=== PATIENT | male | born 1985 | race Caucasian/White ===

== ENCOUNTER 2019-04-06 17:20 | Inpatient (IN) ==
--- NOTE | 2019-04-06 17:36 | ERNOTE ---
Abdominal HPI - Narrative Date of Service: 04/06/19 - General Chief Complaint: Abdominal Pain Time Seen by Provider: 04/06/19 17:21 Source: patient Exam Limitations: no limitations - Immun/Allergies/Home Medications Immunizatons: IMMUNIZATION HX Immunizations Up to Date Yes History of Influenza Vaccine No Hx Pneumococcal Vaccination No Allergies/Adverse Reactions: Allergies codeine Adverse Reaction (Intermediate, Verified 04/06/19 17:27) Other Home Medications: HOME MEDICATIONS ibuprofen 400 mg tablet 400 mg PO BID PRN tab 02/16/18 [Last Taken Unknown] - Pain Score Pain Score #1 Pain Score: 8 Abdominal Pain Onset Location: flank - Left flank Pain Radiation: LLQ - History of Present Illness Narrative: 33 yr old male presents with left flank pain radiating into the LLQ and suprapubic region. This began yesterday and progressively worsened the past two hours to severe pain. Describes as sharp. Rates 8-9/10. Reports associated nausea and emesis x 2. Last BM was two hours ago. Denies any diarrhea. Last ate at noon. Reports burning in urination. Was diagnosed wtih Gonorrhea/Chlamydia 6 weeks ago. Did not bean picker medication for treatment as he could not afford it. Date (Duration): 04/06/19 Time (Timing): 17:35 Timing: getting worse Quality: severe Activities at Onset: none Modifying Factors - (Improves): Present: other - curled in the position helps slightly Modifying Factors - (Worsens): Present: other - nothing Associated Symptoms: Present: back pain - left flank pain , diaphoresis, nausea, vomiting. Absent: fever/chills Prior Abdominal Problems: Present: none Review of Systems - Review of Systems Constitutional: Present: diaphoresis. Absent: recent illness EYE: Present: no symptoms reported ENT: Present: no symptoms reported Respiratory: Absent: shortness of breath, cough Cardiology: Absent: chest pain Gastrointestinal/Abdominal: Present: nausea, vomiting, abdominal pain - LLQ, suprapubic Genitourinary: Absent: pain, dysuria Musculoskeletal: Present: back pain - left flank pain Skin: Present: no symptoms reported Neurological: Present: no symptoms reported Endocrine: Present: no symptoms reported Hematologic/Lymphatic: Present: no symptoms reported Psych: Present: no symptoms reported All Other Systems: All systems neg except as marked Medical History (Last Reviewed 04/06/19 @ 17:59 by TAMEKA Yates) Knee pain, right No pertinent past medical history Surgical History: Surgical History (Last Reviewed 04/06/19 @ 17:59 by TAMEKA Yates) No pertinent past surgical history Family History: Family History (Last Reviewed 04/06/19 @ 17:59 by TAMEKA Yates) Mother Alive and well Father Alive and well Other No pertinent family history Social History: (Last Reviewed 04/06/19 @ 17:59 by TAMEKA Yates) Social History: household members: none current occupational status: employed 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 Service: No Tobacco: Smoking Status: Current every day smoker tobacco type: cigarettes Smoking cigarettes per day: 20.0 Smoking packs per day: 1 Alcohol: alcohol intake: current alcohol intake frequency: holiday/special occasion Substance Use: substance use type: does not use Dietary Habits: caffeine: Yes Type: coffee Physical Exam - Physical Exam General Appearance: Present: wd/wn, alert, other - No acute distress other than pain Head Exam: Present: normal inspection, no evidence of injury Eye Exam: Normal inspection: bilateral, PERRL: bilateral, EOMI: bilateral Ears, Nose, Throat: Present: normal ENT inspection, normal pharynx. Absent: dry mucous membranes Neck: Present: normal inspection Respiratory: Present: no respiratory distress, normal breath sounds, no accessory muscle use, chest nontender, lungs clear Cardiovascular/Chest: Present: no murmur, tachycardia Gastrointestinal/Abdominal: Present: nondistended, tenderness - Tenderness noted over the LLQ and suprapubic region , abnormal bowel sounds - Decreased bowel sounds , other - Flat, soft. Back Exam: Present: normal inspection, no vertebral tenderness, CVA tenderness (L) Extremity Exam: Present: normal inspection, normal range of motion, no edema Neurological Exam: Present: alert, oriented, normal mood/affect, no motor/sensory deficits Skin Exam: Present: normal color, warm/dry, diaphoresis Progress - Results and Orders Patient's Lab Results:: I have reviewed the patient's lab results. Results and Orders: Laboratory Tests 04/06/19 17:31 Urine Color Yellow Urine Appearance Cloudy Urine pH 7.5 Ur Specific [place] 1.010 Urine Protein 15 H Urine Glucose (UA) Negative Urine Ketones Negative Urine Blood 25 H Urine Nitrate Positive H Urine Bilirubin Negative Urine Urobilinogen Normal Ur Leukocyte Esterase 500 H Urine RBC 10-25 H Urine WBC >50 H Ur Epithelial Cells 0-5 Urine Bacteria 3+ H Urine Culture Comments Culture to follow Laboratory Tests 04/06/19 04/06/19 17:41 17:41 WBC 23.5 H RBC 5.18 Hgb 16.0 Hct 47.5 Plt Count 388 Sodium 133 Potassium 4.2 Chloride 96 L Carbon Dioxide 26.3 Anion Gap 14.9 H BUN 12 Creatinine 1.27 Random Glucose 106 Calcium 9.4 Total Bilirubin 0.8 AST 37 ALT 73 H Alkaline Phosphatase 81 Amylase 69 Lipase 445 H Laboratory Tests 04/06/19 17:55 Lactic Acid, Venous 2.8 H* - Vital Signs Patient's Vital Signs:: I have reviewed the patient's vital signs. Vital Signs: Vital Signs 04/06/19 17:24 Temperature 36.2 C Pulse Rate 116 H Respiratory Rate 24 H Blood Pressure 125/81 O2 Sat by Pulse Oximetry 99 - CT/Ultrasound CT/Ultrasound Narrative: CT abdomen/pelvis without IV contrast - Punctate non-obstructive calculus involving the mid pole of the left kidney. Liver is normal. Gallbladder is normal. Spleen is normal size. There is no evidence of pancreatitis. GI tract is acutely unremarkable. The retrocecal appendix is normal. No evidence of bowel perforation. Urinary bladder appears unremarkable. - Progress/Reassessment Chief Complaint: Abdominal Pain Progress:: Improved Progress Note-Subjective: 04/06/19 19:14 Test results, etiology and treatment plan discussed with the patient. ER course: IV fluids x 2 liters initiated in the ER. Initially Ciprofloxin 400 mg IV given. After lactic acid returned Zosyn 3.375 GM IV given Azithromycin 1 GM po given to treat his Chlamydia that was diagnosed on 04/02/19 but he did not receive treatment for. Tylenol 1000 mg for fever. Dilaudid 1 mg IV given for pain. Pain improved. No emesis during stay. Vitals remained stable. Temperature increased to 39.2. Case staffed with Dr. Colvin who graciously accepted his care. - Transfer of Care Physician Sign Out: Kirsten Calvin Brief History: 33 yr old with one day history of left flank pain, burning in urination and untreated Chlamydia. Receiving Physician: Erlin Oliver Expected Disposition: Admit Plan - Plan Plan: Admit to the hospital for Observation, IV fluids, IV antibiotics Departure Clinical Impression: Sepsis due to urinary tract infection, Chlamydia infection, Elevated lipase Clinical Impression: (Ruled Out): Elevated amylase - Departure Disposition: Still a patient Condition: Good
[2019-04-06] MEDS ORDERED: NORMAL SALINE 1,000 ML IV ONE ×2 (17:37→18:53)
[2019-04-06] MEDS ORDERED: ONDANSETRON HCL/PF 2 MG/ML VIAL IV ONE (17:37)
[2019-04-06] MEDS ORDERED: HYDROmorphone HCL 1 MG/ML DISP.SYRIN IV ONE (17:38)
[2019-04-06 17:42] LABS: Urine Appearance Cloudy (CLEAR); Urine Bilirubin Negative (NEGATIVE); Urine Blood 25 /ul (NEGATIVE); Urine Color Yellow; Urine Ketone Negative (NEGATIVE); Urine Nitrite Positive (NEGATIVE); Urine Protein 15 mg/dL (NEGATIVE); Urine Urobilinogen Normal (NORMAL); Urine WBC >50 /hpf (0-5); Urine pH 7.5 pH (5.0-7.0)
[2019-04-06 17:44] LABS: Urine Bacteria 3+
[2019-04-06 18:01] LABS: Hematocrit 47.5 % (42.0-52.0); Mean Cell Volume 91.7 fl (78-100); Mean Corpuscular Hemoglobin 30.9 pg (27-31); Mean Corpuscular Hgb Conc 33.7 g/dl (32-36); Mean Platelet Volume 8.5 fl (8-11.3); Platelet Count 388 K/mm3 (150-450); Red Blood Count 5.18 M/mm3 (4.7-6.0); Red Cell Distribution Width 12.5 % (11.5-14.0); White Blood Count 23.5 K/mm3 (4.0-10.5)
[2019-04-06 18:04] LABS: Total Cells Counted 100
[2019-04-06 18:16] LABS: Albumin * 3.9 gm/dl (3.4-5.0); Anion Gap 14.9 mmol/L (6.8-13.8); BUN/Creatinine Ratio 9.4 (9.0-21.6); Bilirubin, Total 0.8 mg/dL (0.0-1.1); Ca. Corrected For Albumin 9.2 mg/dL (8.4-10.2); Calcium * 9.4 mg/dL (7.9-10.9); Carbon Dioxide 26.3 mmol/L (24-32.6); Potassium 4.2 mmol/L (3.4-4.6)
[2019-04-06 18:30] LABS: Lymphocyte 9 % (20-51); Monocyte 9 % (0-9); Neutrophil 82 % (42-75); Neutrophil # 19.3 K/mm3 (1.3-6.0)
[2019-04-06] MEDS ORDERED: CIPROFLOXACIN IN 5 % DEXTROSE 400 MG/200 ML BAG IV SCH (18:30)
[2019-04-06 18:31] LABS: Platelet Estimate Normal (NORMAL); RBC Morphology Normal (NORMAL)
[2019-04-06] MEDS ORDERED: PIPERACILLIN SODIUM/TAZOBACTAM 3.375 GM in DEXTROSE 5 % IN WATER 100 ML IV ONE ×2 (18:59)
[2019-04-06] MEDS ORDERED: ACETAMINOPHEN 500 MG TABLET PO ONE (19:06)
[2019-04-06] MEDS ORDERED: AZITHROMYCIN 250 MG TABLET PO ONE (19:09)
[2019-04-06] MEDS: NORMAL SALINE 1,000 ML IV PRN (22:00)
--- NOTE | 2019-04-07 00:16 | HP ---
Chief Complaint - Chief Complaint Date of Service: 04/07/19 Time of Service: 00:11 Chief Complaint: abdominal pain, fever History of Present Illness: 34 year old male presented to the ER with 2 days worsening abdominal pain. He endorses fever, chills, nausea with emesis. Pain is rated as a 8 out of 10. It is located suprapubic that radiates into his left flank. He endorse frequency, urgency, burning with urination. In the ER he had an elevated WBC with shift, febrile. CT scan showed nonobstructive nephrolithiasis but no evidence of pyelonephritis. Urine + for LE, nitrates, blood, and bactieria. He was given cipro and zosyn once his lactic acid returned elevated at 2.8. He was given a bolus of two liters of NS in the ER. He was placed under observation for UTI with characteristics of sepsis. Medical History (Last Reviewed 04/06/19 @ 21:42 by Cindy Mccoy RN) Spider bite Knee pain, right No pertinent past medical history Surgical History: Surgical History (Last Reviewed 04/06/19 @ 21:42 by Cindy Mccoy RN) No pertinent past surgical history Family History: Family History (Last Reviewed 04/06/19 @ 21:43 by Cindy Mccoy RN) Mother Alive and well Father Alive and well Other No pertinent family history Social History: (Last Reviewed 04/06/19 @ 21:43 by Cindy Mccoy RN) Social History: lives independently: Yes household members: children, none number of children: 1 current occupational status: employed 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 Service: No Tobacco: Smoking Status: Current every day smoker tobacco type: cigarettes Smoking cigarettes per day: 20.0 Smoking packs per day: 1 Alcohol: alcohol intake: current alcohol intake frequency: holiday/special occasion Substance Use: substance use type: does not use Dietary Habits: caffeine: Yes Type: coffee Review Of Systems (GEN) - Review of Systems Generalized/Overall Review: Present: Chills, Fever, Fatigue EENTM: Present: No Symptoms Reported Respiratory: Absent: Cough, Shortness of Breath Cardiac: Absent: Chest Pain, Edema, Palpitations Abdominal: Present: Nausea, Vomiting, Abdominal Pain. Absent: Hematemesis, Diarrhea Genitourinary: Present: Burning, Urgency, Frequency, Hematuria, Dysuria Musculoskeletal: Present: Back Pain Neurological: Present: No Symptoms Reported Skin: Present: Change in Color - flushed Endocrine: Present: No Symptoms Reported Immunizations: IMMUNIZATION HX Immunizations Up to Date Yes History of Influenza Vaccine No Hx Pneumococcal Vaccination No Allergies/Adverse Reactions: Allergies Allergy/AdvReac Type Severity Reaction Status Date / Time codeine AdvReac Intermediate Other Verified 04/06/19 17:27 Home Medications: HOME MEDICATIONS ibuprofen 400 mg tablet 400 mg PO BID PRN tab 02/16/18 [Last Taken Unknown] Amox Tr/Potassium Clavulanate [Augmentin 500-125 Tablet] 500 mg PO 04/07/19 [Last Taken Unknown] Exam - Exam Vital Signs: Vital Signs - Last Taken Temp 37.7 C 04/06/19 21:51 Pulse 103 H 04/06/19 21:51 Resp 16 04/06/19 21:51 BP 121/63 04/06/19 21:51 Pulse Ox 99 04/06/19 21:51 Constitutional: Present: Alert, Oriented x3, Cooperative, Moderate distress - acutely ill ENT Exam: Present: hearing grossly normal. Absent: nasal congestion, nasal drainage Eye Exam: bilateral eye: normal inspection, EOMI Neck: Present: non-tender, supple Back Exam: Present: CVA tenderness (L). Absent: muscle spasm Respiratory: Present: lungs clear, normal breath sounds, other - tachypneic Cardiovascular/Chest: Present: no murmur, tachycardia Abdomen: Present: Normal bowel sounds, soft, suprapubic tenderness /Rectal: Present: Exam deferred Skin Exam: Present: diaphoresis. Absent: skin rash Lymphatic: Present: no adenopathy Neurologic: Present: alert, normal mood/affect, oriented x 3 Appearance: Present: appropriate appearance, appropriate insight Eye contact: Present: cooperative, good eye contact Thoughts: Present: normal thought pattern, normal mood /affect Diagnostic Studies: Abnormal Lab Results 04/06/19 04/06/19 04/06/19 Range/Units 17:31 17:41 17:41 WBC 23.5 H (4.0-10.5) K/mm3 Neutrophils % (Manual) 82 H (42-75) % Lymphocytes % (Manual) 9 L (20-51) % Neutrophils # (Manual) 19.3 H (1.3-6.0) K/mm3 Monocytes # (Manual) 2.1 H (0.0-1.0) k/mm3 Chloride 96 L (97-106) mmol/L Anion Gap 14.9 H (6.8-13.8) mmol/L Lactic Acid, Venous (0.4-2.0) mmol/L ALT 73 H (19-67) U/L Lipase 445 H (73-393) U/L Urine Protein 15 H (NEGATIVE) mg/dL Urine Blood 25 H (NEGATIVE) /ul Urine Nitrate Positive H (NEGATIVE) Ur Leukocyte Esterase 500 H (NEGATIVE) /ul Urine RBC 10-25 H (0-5) /hpf Urine WBC >50 H (0-5) /hpf Urine Bacteria 3+ H (NONE) 04/06/19 Range/Units 17:55 WBC (4.0-10.5) K/mm3 Neutrophils % (Manual) (42-75) % Lymphocytes % (Manual) (20-51) % Neutrophils # (Manual) (1.3-6.0) K/mm3 Monocytes # (Manual) (0.0-1.0) k/mm3 Chloride (97-106) mmol/L Anion Gap (6.8-13.8) mmol/L Lactic Acid, Venous 2.8 H* (0.4-2.0) mmol/L ALT (19-67) U/L Lipase (73-393) U/L Urine Protein (NEGATIVE) mg/dL Urine Blood (NEGATIVE) /ul Urine Nitrate (NEGATIVE) Ur Leukocyte Esterase (NEGATIVE) /ul Urine RBC (0-5) /hpf Urine WBC (0-5) /hpf Urine Bacteria (NONE) Laboratory Results WBC 23.5 K/mm3 (4.0-10.5) H 04/06/19 17:41 RBC 5.18 M/mm3 (4.7-6.0) 04/06/19 17:41 Hgb 16.0 gm/dL (13.5-18.0) 04/06/19 17:41 Hct 47.5 % (42.0-52.0) 04/06/19 17:41 MCV 91.7 fl (78-100) 04/06/19 17:41 MCH 30.9 pg (27-31) 04/06/19 17:41 MCHC 33.7 g/dl (32-36) 04/06/19 17:41 RDW 12.5 % (11.5-14.0) 04/06/19 17:41 Plt Count 388 K/mm3 (150-450) 04/06/19 17:41 MPV 8.5 fl (8-11.3) 04/06/19 17:41 Neutrophils % (Manual) 82 % (42-75) H 04/06/19 17:41 Lymphocytes % (Manual) 9 % (20-51) L 04/06/19 17:41 Monocytes % (Manual) 9 % (0-9) 04/06/19 17:41 Neutrophils # (Manual) 19.3 K/mm3 (1.3-6.0) H 04/06/19 17:41 Lymphocytes # (Manual) 2.1 k/mm3 (1.5-3.5) 04/06/19 17:41 Monocytes # (Manual) 2.1 k/mm3 (0.0-1.0) H 04/06/19 17:41 Platelet Estimate Normal (NORMAL) 04/06/19 17:41 RBC Morphology Normal (NORMAL) 04/06/19 17:41 Sodium 133 mmol/L (132-142) 04/06/19 17:41 Plasma Sodium 133 mmol/L (130-142) 04/06/19 17:41 Potassium 4.2 mmol/L (3.4-4.6) 04/06/19 17:41 Chloride 96 mmol/L (97-106) L 04/06/19 17:41 Carbon Dioxide 26.3 mmol/L (24-32.6) 04/06/19 17:41 Anion Gap 14.9 mmol/L (6.8-13.8) H 04/06/19 17:41 BUN 12 mg/dL (6-23) 04/06/19 17:41 Creatinine 1.27 mg/dL (0.4-1.4) 04/06/19 17:41 Est GFR (Non-Af Amer) 70 mL/min (60-130) 04/06/19 17:41 BUN/Creatinine Ratio 9.4 (9.0-21.6) 04/06/19 17:41 Random Glucose 106 mg/dL (70-110) 04/06/19 17:41 Lactic Acid, Venous 1.4 mmol/L (0.4-2.0) 04/06/19 21:25 Calcium 9.4 mg/dL (7.9-10.9) 04/06/19 17:41 Calcium Adj for Albumin 9.2 mg/dL (8.4-10.2) 04/06/19 17:41 Total Bilirubin 0.8 mg/dL (0.0-1.1) 04/06/19 17:41 AST 37 U/L (0-48) 04/06/19 17:41 ALT 73 U/L (19-67) H 04/06/19 17:41 Alkaline Phosphatase 81 U/L (50-170) 04/06/19 17:41 Total Protein 8.0 gm/dL (6.2-8.2) 04/06/19 17:41 Albumin 3.9 gm/dl (3.4-5.0) 04/06/19 17:41 Amylase 69 U/L (25-115) 04/06/19 17:41 Lipase 445 U/L (73-393) H 04/06/19 17:41 Urine Color Yellow 04/06/19 17:31 Urine Appearance Cloudy (CLEAR) 04/06/19 17:31 Urine pH 7.5 pH (5.0-7.0) 04/06/19 17:31 Ur Specific [place] 1.010 SP.GR. (1.005-1.030) 04/06/19 17:31 Urine Protein 15 mg/dL (NEGATIVE) H 04/06/19 17:31 Urine Glucose (UA) Negative mg/dL (NEGATIVE) 04/06/19 17:31 Urine Ketones Negative mg/dL (NEGATIVE) 04/06/19 17:31 Urine Blood 25 /ul (NEGATIVE) H 04/06/19 17:31 Urine Nitrate Positive (NEGATIVE) H 04/06/19 17:31 Urine Bilirubin Negative mg/dl (NEGATIVE) 04/06/19 17:31 Prot Sulfosalicylic Acd 1+ mg/dL (0) 04/06/19 17:31 Urine Urobilinogen Normal EU/dl (NORMAL) 04/06/19 17:31 Ur Leukocyte Esterase 500 /ul (NEGATIVE) H 04/06/19 17:31 Urine RBC 10-25 /hpf (0-5) H 04/06/19 17:31 Urine WBC >50 /hpf (0-5) H 04/06/19 17:31 Ur Epithelial Cells 0-5 /hpf (0-5) 04/06/19 17:31 Urine Bacteria 3+ (NONE) H 04/06/19 17:31 Urine Culture Comments Culture to follow 04/06/19 17:31 Assessment/Plan - Narrative Narrative: Patient here for UTI with sepsis. Lactic acid elevated as well as elevated WBC. Repeat lactic acid ordered. Patient placed under obs. Reg diet ordered. Nurse to call with questions or concerns. - Assessment/Plan (1) Sepsis due to urinary tract infection Assessment: Continue Cipro for UTI. Blood and urine cultures pending. Toradol ordered x1 for pain. Will add prn norco as patient does look very uncomfortable. Continue fluids. Problem: Suspected (2) Chlamydia infection Assessment: Azithro 1 gram x1 given Problem: Acute (3) Elevated lipase Problem: Acute
[2019-04-07] MEDS ORDERED: KETOROLAC TROMETHAMINE 30 MG/ML VIAL IV ONE (00:32)
[2019-04-07] MEDS ORDERED: ONDANSETRON HCL/PF 2 MG/ML VIAL IV PRN (00:45)
[2019-04-07] MEDS: HYDROcodone/ACETAMINOPHEN 1 EACH TABLET PO PRN ×4 (01:48→23:40)
[2019-04-07] MEDS: NORMAL SALINE 1,000 ML IV PRN ×3 (06:02→19:21)
[2019-04-07 06:46] LABS: Hematocrit 43.2 % (42.0-52.0); Hemoglobin 14.3 gm/dL (13.5-18.0); Mean Cell Volume 93.1 fl (78-100); Mean Corpuscular Hemoglobin 30.8 pg (27-31); Mean Corpuscular Hgb Conc 33.1 g/dl (32-36); Neutrophil # 18.8 K/mm3 (1.3-6.0); Neutrophil % 87.6 % (42-75.0); Platelet Count 265 K/mm3 (150-450); Red Blood Count 4.64 M/mm3 (4.7-6.0); Red Cell Distribution Width 12.6 % (11.5-14.0); White Blood Count 21.4 K/mm3 (4.0-10.5)
[2019-04-07 06:58] LABS: Anion Gap 7.6 mmol/L (6.8-13.8); BUN/Creatinine Ratio 8.4 (9.0-21.6); Calcium * 8.5 mg/dL (7.9-10.9); Carbon Dioxide 30.8 mmol/L (24-32.6); Estimated Creat Clear 91.5; Potassium 4.4 mmol/L (3.4-4.6)
[2019-04-07] MEDS ORDERED: NORMAL SALINE 1,000 ML IV ONE ×2 (10:50→17:01)
[2019-04-07] MEDS: ACETAMINOPHEN 325 MG TABLET PO PRN ×2 (10:59→18:32)
[2019-04-07] MEDS ORDERED: ACETAMINOPHEN 1,000 MG/100 ML BTL IV ONE (11:42)
--- NOTE | 2019-04-07 17:23 | PN ---
Noemi Note - Interim Date: 04/07/19 Time: 17:08 Narrative: 04/07/19 17:08 Called by nursing staff for recurrent fever, up to 39.4. Went to check the patient, who is having rigors. He feels like he's being stabbed in his kidneys when he moves. He felt better earlier after the IV tylenol, but it didn't help for very long. He is tolerating fluids and po intake. Denies sore throat, CP, SOB, diarrhea, ulcers, IV drug use. [place] Will restart zosyn. 04/07/19 17:10
[2019-04-07] MEDS: IBUPROFEN 400 MG TABLET PO PRN (17:27)
[2019-04-07] MEDS: PIPERACILLIN SODIUM/TAZOBACTAM 3.375 GM in DEXTROSE 5 % IN WATER 100 ML IV SCH ×2 (18:14)
[2019-04-07] MEDS: SACCHAROMYCES BOULARDII 250 MG CAPSULE PO SCH (20:17)
[2019-04-08] MEDS: IBUPROFEN 400 MG TABLET PO PRN ×2 (02:19→14:36)
[2019-04-08] MEDS: PIPERACILLIN SODIUM/TAZOBACTAM 3.375 GM in DEXTROSE 5 % IN WATER 100 ML IV SCH ×6 (02:21→18:45)
[2019-04-08] MEDS: NORMAL SALINE 1,000 ML IV PRN ×3 (03:26→20:37)
[2019-04-08] MEDS: HYDROcodone/ACETAMINOPHEN 1 EACH TABLET PO PRN ×3 (03:58→22:11)
[2019-04-08 06:00] LABS: Hematocrit 37.9 % (42.0-52.0); Hemoglobin 12.6 gm/dL (13.5-18.0); Mean Cell Volume 93.6 fl (78-100); Mean Corpuscular Hemoglobin 31.1 pg (27-31); Mean Corpuscular Hgb Conc 33.2 g/dl (32-36); Mean Platelet Volume 8.4 fl (8-11.3); Neutrophil # 13.2 K/mm3 (1.3-6.0); Neutrophil % 84.9 % (42-75.0); Platelet Count 230 K/mm3 (150-450); Red Blood Count 4.05 M/mm3 (4.7-6.0); Red Cell Distribution Width 12.6 % (11.5-14.0); White Blood Count 15.5 K/mm3 (4.0-10.5)
--- NOTE | 2019-04-08 07:52 | PN ---
Subjective - Date and Time Seen Date: 04/08/19 Time: 07:52 Subjective Narrative: Patient did well overnight, no recurrent fevers. Patient does endorse some abdominal pain still and some left side pain but overall improving from initial presentation. Vital signs are stable. Objective - Review of Systems Generalized/Overall Review: Reports: Fatigue. Denies: Chills, Fever EENTM: Reports: No Symptoms Reported Respiratory: Denies: Cough, Shortness of Breath Cardiac: Denies: Chest Pain, Edema, Palpitations Abdominal: Reports: Abdominal Pain. Denies: Nausea, Vomiting Genitourinary Symptoms: Denies: Burning, Itching, Urgency, Frequency Musculoskeletal Complaints: Reports: Back Pain Neurological: Reports: No Symptoms Reported Skin: Reports: No Symptoms Reported Endocrine: Reports: No Symptoms Reported - Vitals Vitals: Last Vital Signs Temp 36.6 C 04/08/19 07:44 Pulse 69 04/08/19 07:44 Resp 16 04/08/19 07:44 BP 94/65 04/08/19 07:44 Pulse Ox 96 04/08/19 07:44 - Abnormal Lab Findings Abnormal Lab Findings: Abnormal Lab Results 04/08/19 Range/Units 05:25 WBC 15.5 H D (4.0-10.5) K/mm3 RBC 4.05 L (4.7-6.0) M/mm3 Hgb 12.6 L (13.5-18.0) gm/dL Hct 37.9 L (42.0-52.0) % MCH 31.1 H (27-31) pg Immature Gran % (Auto) 0.60 H (0.001-0.429) % Immature Gran # (Auto) 0.09 H (0.000-0.0310) K/mm3 Neutrophils % 84.9 H (42-75.0) % Lymphocytes % 5.5 L (20-51) % Neutrophils # 13.2 H (1.3-6.0) K/mm3 Lymphocytes # 0.85 L (1.5-3.5) k/mm3 Monocytes # 1.2 H (0.0-1.0) k/mm3 - Exam Constitutional: Present: Alert, Oriented x3, Cooperative - In 3 days ENT Exam: Present: hearing grossly normal. Absent: nasal congestion, nasal drainage Neck: Present: non-tender, supple Respiratory: Present: lungs clear, normal breath sounds Cardiovascular/Chest: Present: regular rate, rhythm, no murmur Abdomen: Present: Normal bowel sounds, soft, CVA tenderness - Left, suprapubic tenderness /Rectal: Present: Exam deferred Skin Exam: Present: normal color, warm/dry. Absent: diaphoresis Lymphatic: Present: no adenopathy Appearance: Present: appropriate appearance, appropriate insight Eye contact: Present: cooperative, good eye contact, normal speech Thoughts: Present: normal thought pattern, normal mood /affect Assessment/Plan Plan Narrative: Patient continues to improve while on Cipro and Zosyn. Blood cultures came back somewhat confusing as both were drawn at the same time from the same place and only one showed growth of the other was negative for growth. We will wait for final read before we make any adjustments to antibiotics. We will recheck blood cultures if patient spikes another fever. Otherwise he is looking better clinically and feels better overall, continue IV antibiotics at this time. Patient is in agreement with the treatment plan. Nurse will call with any questions or concerns. - Problems/Diagnosis (1) Sepsis due to urinary tract infection Problem: Suspected (2) Chlamydia infection Problem: Acute (3) Elevated lipase Problem: Acute
[2019-04-08] MEDS: SACCHAROMYCES BOULARDII 250 MG CAPSULE PO SCH ×2 (10:10→20:00)
[2019-04-08] MEDS: ACETAMINOPHEN 325 MG TABLET PO PRN (10:19)
[2019-04-09] MEDS: PIPERACILLIN SODIUM/TAZOBACTAM 3.375 GM in DEXTROSE 5 % IN WATER 100 ML IV SCH ×6 (03:03→18:52)
[2019-04-09] MEDS: HYDROcodone/ACETAMINOPHEN 1 EACH TABLET PO PRN ×2 (03:52→08:16)
[2019-04-09] MEDS: NORMAL SALINE 1,000 ML IV PRN ×3 (04:44→22:14)
[2019-04-09] MEDS: IBUPROFEN 400 MG TABLET PO PRN ×2 (04:46→21:04)
[2019-04-09] MEDS: SACCHAROMYCES BOULARDII 250 MG CAPSULE PO SCH ×2 (08:16→21:04)
--- NOTE | 2019-04-09 10:04 | PN ---
Subjective - Date and Time Seen Date: 04/09/19 Time: 10:03 Subjective Narrative: Patient feeling significantly better today patient has been afebrile for 24 hours endorses vital signs been stable. Patient currently denies nausea, frequency/urgency/burning with urination. Patient is still mildly tender suprapubically as well as left CVA. No acute events overnight. Objective - Review of Systems Generalized/Overall Review: Denies: Weakness, Chills, Fever EENTM: Reports: No Symptoms Reported Respiratory: Denies: Cough, Shortness of Breath Cardiac: Denies: Chest Pain, Edema, Palpitations Abdominal: Reports: Abdominal Pain - Suprapubic. Denies: Nausea Genitourinary Symptoms: Denies: Burning, Itching, Urgency Musculoskeletal Complaints: Reports: Back Pain - Left side pain Neurological: Reports: No Symptoms Reported Skin: Reports: No Symptoms Reported Endocrine: Reports: No Symptoms Reported - Vitals Vitals: Last Vital Signs Temp 37.2 C 04/09/19 06:46 Pulse 78 04/09/19 06:46 Resp 18 04/09/19 06:46 BP 109/70 04/09/19 06:46 Pulse Ox 97 04/09/19 06:46 - Exam Constitutional: Present: Alert, Oriented x3, Cooperative, No distress ENT Exam: Present: hearing grossly normal. Absent: nasal congestion, nasal drainage Neck: Present: non-tender, full range of motion, supple Respiratory: Present: chest non-tender, lungs clear, normal breath sounds Cardiovascular/Chest: Present: regular rate, rhythm, no murmur Abdomen: Present: Normal bowel sounds, soft, CVA tenderness - Left, suprapubic tenderness - Minimal /Rectal: Present: Exam deferred Skin Exam: Present: normal color, warm/dry Lymphatic: Present: no adenopathy Neurologic: Present: alert, normal mood/affect, oriented x 3 Appearance: Present: appropriate appearance, appropriate insight Eye contact: Present: cooperative, good eye contact Thoughts: Present: normal thought pattern, normal mood /affect Assessment/Plan Plan Narrative: Blood cultures and urine cultures returned today showing bacteremia from E. coli, currently sensitive to Zosyn. We will continue this for 2 more days and then transition to oral antibiotics. Patient currently doing well and feeling much better. Patient no longer symptomatic from UTI standpoint though he does still have some suprapubic tenderness as well as some left-sided CVA tenderness, both of which are improving. Continue current diet. Continue SCDs for DVT prophylaxis. Patient's vital signs are stable and is been afebrile for 24 hours. No changes in his other treatment plans. Patient agrees with treatment plan, nurse will call with questions or concerns. - Problems/Diagnosis (1) Sepsis due to urinary tract infection Problem: Acute (2) Chlamydia infection Problem: Acute (3) Elevated lipase Problem: Acute
[2019-04-09] MEDS: ACETAMINOPHEN 325 MG TABLET PO PRN (18:50)
[2019-04-10] MEDS: PIPERACILLIN SODIUM/TAZOBACTAM 3.375 GM in DEXTROSE 5 % IN WATER 100 ML IV SCH ×2 (03:04)
[2019-04-10] MEDS: ACETAMINOPHEN 325 MG TABLET PO PRN ×2 (06:24→17:28)
[2019-04-10] MEDS: NORMAL SALINE 1,000 ML IV PRN (06:25)
[2019-04-10 07:22] LABS: Hematocrit 39.4 % (42.0-52.0); Hemoglobin 13.1 gm/dL (13.5-18.0); Mean Cell Volume 92.3 fl (78-100); Mean Corpuscular Hemoglobin 30.7 pg (27-31); Mean Corpuscular Hgb Conc 33.2 g/dl (32-36); Mean Platelet Volume 8.1 fl (8-11.3); Neutrophil # 5.3 K/mm3 (1.3-6.0); Neutrophil % 67.8 % (42-75.0); Platelet Count 250 K/mm3 (150-450); Red Blood Count 4.27 M/mm3 (4.7-6.0); Red Cell Distribution Width 12.6 % (11.5-14.0); White Blood Count 7.9 K/mm3 (4.0-10.5)
[2019-04-10] MEDS: SACCHAROMYCES BOULARDII 250 MG CAPSULE PO SCH ×2 (08:23→21:01)
--- NOTE | 2019-04-10 10:05 | PN ---
Subjective - Date and Time Seen Date: 04/10/19 Time: 10:05 Subjective Narrative: Patient feeling much better today. No fevers in >24 hrs. Vitals are stable and he has no concerns. Minimal abdominal pain this morning. Tolerating PO well. Objective - Review of Systems Generalized/Overall Review: Denies: Weakness, Chills, Fever EENTM: Reports: No Symptoms Reported Respiratory: Denies: Cough, Shortness of Breath Cardiac: Denies: Chest Pain, Edema Abdominal: Denies: Nausea, Vomiting, Abdominal Pain Genitourinary Symptoms: Denies: Burning, Itching, Urgency, Frequency Musculoskeletal Complaints: Denies: Back Pain Neurological: Reports: No Symptoms Reported Skin: Reports: No Symptoms Reported Endocrine: Reports: No Symptoms Reported - Vitals Vitals: Last Vital Signs Temp 36.6 C 04/10/19 06:52 Pulse 83 04/10/19 06:52 Resp 20 04/10/19 06:52 BP 117/80 04/10/19 06:52 Pulse Ox 98 04/10/19 06:52 - Abnormal Lab Findings Abnormal Lab Findings: Abnormal Lab Results 04/06/19 04/10/19 Range/Units 17:31 07:10 RBC 4.27 L (4.7-6.0) M/mm3 Hgb 13.1 L (13.5-18.0) gm/dL Hct 39.4 L (42.0-52.0) % Immature Gran % (Auto) 0.50 H (0.001-0.429) % Immature Gran # (Auto) 0.04 H (0.000-0.0310) K/mm3 Lymphocytes % 16.9 L (20-51) % Monocytes % 11.8 H (0.0-9) % Lymphocytes # 1.33 L (1.5-3.5) k/mm3 C.trachomatis RNA (TMA) Detected H - Exam Constitutional: Present: Alert, Oriented x3, Cooperative, Well developed ENT Exam: Present: hearing grossly normal, moist mucous membranes. Absent: nasal drainage, pharyngeal erythema Neck: Present: full range of motion, supple, trachea midline Respiratory: Present: lungs clear, normal breath sounds Cardiovascular/Chest: Present: regular rate, rhythm, no murmur Abdomen: Present: Normal bowel sounds, soft, nontender, nondistended. Absent: CVA tenderness, suprapubic tenderness Skin Exam: Present: normal color, warm/dry. Absent: diaphoresis Neurologic: Present: alert, oriented x 3 Appearance: Present: appropriate appearance, appropriate insight Eye contact: Present: cooperative, good eye contact Thoughts: Present: normal thought pattern, normal mood /affect Assessment/Plan Plan Narrative: Significant improvement overnight while on IV abx. Blood culture returned positive for E. Coli. Susceptible to Zosyn and Cipro. Treated appropriately. Will stop zosyn now and start oral cirpo which he will go home on likely tomorrow as long as he continues to do well. Will stop IV fluids as he is tolerating oral well. Repeat CBC in the am. Continuue reg diet. Nurse to call with questions or concerns. - Problems/Diagnosis (1) Sepsis due to urinary tract infection Problem: Acute (2) Chlamydia infection Problem: Acute (3) Elevated lipase Problem: Acute
[2019-04-10] MEDS: CIPROFLOXACIN HCL 500 MG TABLET PO SCH ×2 (10:47→21:01)
[2019-04-11] MEDS: SACCHAROMYCES BOULARDII 250 MG CAPSULE PO SCH (08:28)
[2019-04-11] MEDS: CIPROFLOXACIN HCL 500 MG TABLET PO SCH (08:28)
[2019-04-11 13:32] LABS: Hematocrit 45.2 % (42.0-52.0); Mean Cell Volume 92.6 fl (78-100); Mean Corpuscular Hemoglobin 30.7 pg (27-31); Mean Corpuscular Hgb Conc 33.2 g/dl (32-36); Mean Platelet Volume 7.9 fl (8-11.3); Neutrophil # 4.1 K/mm3 (1.3-6.0); Neutrophil % 54.9 % (42-75.0); Platelet Count 361 K/mm3 (150-450); Red Blood Count 4.88 M/mm3 (4.7-6.0); Red Cell Distribution Width 12.7 % (11.5-14.0); White Blood Count 7.4 K/mm3 (4.0-10.5)
--- NOTE | 2019-04-11 14:05 | DS ---
(1) Sepsis due to urinary tract infection Problem: Resolved (2) Chlamydia infection Problem: Acute (3) Elevated lipase Problem: Acute Date of Discharge:: 04/11/19 Description of Stay: 34-year-old male here due to sepsis secondary to UTI. Patient was found to be bacteremic with the same bug going in his urine. Sensitive to Zosyn and Cipro. He was treated with IV antibiotics for just under 5 days and then transitioned over to oral antibiotics. Patient did well with this regimen, white count and left shift returned to normal on day of discharge. Patient's been afebrile for almost 60 hours now. Patient tolerating p.o. intake and has no urinary symptoms like he did prior to being admitted. Patient was also positive for chlamydia, treated with 1 g azithromycin. Abdominal pain resolved after few days of antibiotic treatment. Patient was tolerating p.o. well without complication. Patient's vital signs been stable and he was in good condition to be turned back over to [facility]. Patient is follow- up with me in 1 week, he is to continue to take Cipro for another 5 days. Patient had no questions or concerns with treatment plan, he was in agreement with it. Procedures Performed: none Results and Findings: Pending Mircobiology Results 04/06/19 18:41 Blood Blood Culture - Preliminary NO GROWTH AFTER 48 HOURS Lab Pending Results 04/06/19 17:31: Urine Color Yellow, Urine Appearance Cloudy, Urine pH 7.5, Ur Specific [place] 1.010, Urine Protein 15 H, Urine Glucose (UA) Negative, Urine Ketones Negative, Urine Blood 25 H, Urine Nitrate Positive H, Urine Bilirubin Negative, Prot Sulfosalicylic Acd 1+, Urine Urobilinogen Normal, Ur Leukocyte Esterase 500 H, Urine RBC 10-25 H, Urine WBC >50 H, Ur Epithelial Cells 0-5, Urine Bacteria 3+ H, Urine Culture Comments Culture to follow 04/06/19 17:31: C.trachomatis RNA (TMA) Detected H, Chlamydia/GC Comment See note, N.gonorrhoeae RNA (TMA) Not detected 04/06/19 17:41: WBC 23.5 H, RBC 5.18, Hgb 16.0, Hct 47.5, MCV 91.7, MCH 30.9, MCHC 33.7, RDW 12.5, Plt Count 388, MPV 8.5, Neutrophils % (Manual) 82 H, Lymphocytes % (Manual) 9 L, Monocytes % (Manual) 9, Neutrophils # (Manual) 19.3 H, Lymphocytes # (Manual) 2.1, Monocytes # (Manual) 2.1 H, Platelet Estimate Normal, RBC Morphology Normal 04/06/19 17:41: Sodium 133, Plasma Sodium 133, Potassium 4.2, Chloride 96 L, Carbon Dioxide 26.3, Anion Gap 14.9 H, BUN 12, Creatinine 1.27, Est GFR (Non-Af Amer) 70, BUN/Creatinine Ratio 9.4, Random Glucose 106, Calcium 9.4, Calcium Adj for Albumin 9.2, Total Bilirubin 0.8, AST 37, ALT 73 H, Alkaline Phosphatase 81, Total Protein 8.0, Albumin 3.9, Amylase 69, Lipase 445 H 04/06/19 17:55: Lactic Acid, Venous 2.8 H* 04/06/19 21:25: Lactic Acid, Venous 1.4 04/07/19 06:40: WBC 21.4 H, RBC 4.64 L, Hgb 14.3, Hct 43.2, MCV 93.1, MCH 30.8, MCHC 33.1, RDW 12.6, Plt Count 265, MPV 8.0, Immature Gran % (Auto) 0.60 H, Immature Gran # (Auto) 0.13 H, Neutrophils % 87.6 H, Lymphocytes % 6.8 L, Monocytes % 4.7, Eosinophils % 0.1, Basophils % 0.2, Nucleated RBC % 0.0, Neutrophils # 18.8 H, Lymphocytes # 1.45 L, Monocytes # 1.0, Eosinophils # 0.0, Absolute Basophils 0.1 04/07/19 06:40: Sodium 136, Plasma Sodium 136, Potassium 4.4, Chloride 102, Carbon Dioxide 30.8, Anion Gap 7.6, BUN 11, Creatinine 1.31, Est GFR (Non-Af Amer) 67, BUN/Creatinine Ratio 8.4 L, Random Glucose 130 H, Calcium 8.5 04/08/19 05:25: WBC 15.5 H D, RBC 4.05 L, Hgb 12.6 L, Hct 37.9 L, MCV 93.6, MCH 31.1 H, MCHC 33.2, RDW 12.6, Plt Count 230, MPV 8.4, Immature Gran % (Auto) 0.60 H, Immature Gran # (Auto) 0.09 H, Neutrophils % 84.9 H, Lymphocytes % 5.5 L, Monocytes % 7.9, Eosinophils % 0.8, Basophils % 0.3, Nucleated RBC % 0.0, Marcello trophils # 13.2 H, Lymphocytes # 0.85 L, Monocytes # 1.2 H, Eosinophils # 0.1, Absolute Basophils 0.1 04/10/19 07:10: WBC 7.9 D, RBC 4.27 L, Hgb 13.1 L, Hct 39.4 L, MCV 92.3, MCH 30.7, MCHC 33.2, RDW 12.6, Plt Count 250, MPV 8.1, Immature Gran % (Auto) 0.50 H, Immature Gran # (Auto) 0.04 H, Neutrophils % 67.8, Lymphocytes % 16.9 L, Monocytes % 11.8 H, Eosinophils % 2.9, Basophils % 0.1, Nucleated RBC % 0.0, Neutrophils # 5.3, Lymphocytes # 1.33 L, Monocytes # 0.9, Eosinophils # 0.2, Absolute Basophils 0.0 04/11/19 13:22: WBC 7.4, RBC 4.88, Hgb 15.0, Hct 45.2, MCV 92.6, MCH 30.7, MCHC 33.2, RDW 12.7, Plt Count 361, MPV 7.9 L, Immature Gran % (Auto) 0.50 H, Immature Gran # (Auto) 0.04 H, Neutrophils % 54.9, Lymphocytes % 28.6, Monocytes % 11.3 H, Eosinophils % 4.2 H, Basophils % 0.5, Nucleated RBC % 0.0, Neutrophils # 4.1, Lymphocytes # 2.12, Monocytes # 0.8, Eosinophils # 0.3, Absolute Basophils 0.0 Discharge Location: Other - [facility] Disposition: Home self-care Condition: Good Discharge Activity: Activity as tolerated Discharge Diet: General/regular food Referrals: Erlin Oliver DO [Staff Physician] - One Week Problem Oriented Discharge Instructions to Patient/Family: Smoking Cessation, Tips for Success, [id number] Prescriptions (Any new or edited meds): Ciprofloxacin HCl [Cipro] 500 mg PO BID #10 tab Transmission Status: Pending to [id number] Complete Home Medications List: Complete Home Medication List: ibuprofen 400 mg tablet 400 mg PO BID PRN tab 02/16/18 Ciprofloxacin HCl [Cipro] 500 mg PO BID #10 tab 04/11/19
[2019-04-11 14:20] VITALS: BP 122/70
== END 2019-04-11 14:30 | disposition home or self-care (01) | DRG 872 ==
LOC: ER 17:20 → MS 17:20
PROVIDERS: ADMIT Family Medicine; ATTEND Family Medicine
CPT/HCPCS: 36415; 74176; 80048; 80053; 81001; 82150; 83605; 83690; 85007; 85025; 87040; 87077; 87086; 87186; 87491; 87591; 96361; 96374; 96375; 99285; J0131; J2405

== ENCOUNTER 2019-07-11 16:44 | Inpatient (IN) ==
[2019-07-11] MEDS ORDERED: NORMAL SALINE 1,000 ML IV ONE ×2 (17:03→17:49)
[2019-07-11] MEDS ORDERED: ONDANSETRON HCL/PF 2 MG/ML VIAL IV ONE (17:03)
[2019-07-11] MEDS: ACETAMINOPHEN 1,000 MG/100 ML BTL IV PRN (17:11)
--- NOTE | 2019-07-11 17:18 | ERNOTE ---
Back Pain ER HPI Date of Service: 07/11/19 Presenting Symptoms: other - right kidney pain Time Seen by Provider: 07/11/19 16:51 Source: patient, family Exam Limitations: no limitations Immunizations: IMMUNIZATION HX Immunizations Up to Date Yes History of Influenza Vaccine No Hx Pneumococcal Vaccination No Allergies/Adverse Reactions: Allergies codeine Adverse Reaction (Intermediate, Verified 07/11/19 17:02) Other Home Medications: HOME MEDICATIONS ibuprofen 400 mg tablet 400 mg PO BID PRN tab 02/16/18 [Last Taken Unknown] Narrative: Patient reports earlier today he had some dysuria and felt as if he had a fever. Took some ibuprofen and took a warm bath. He noticed that he was having some white discharge while in the bath. However denies any testicular pain or discomfort. Several hrs ago he started developing right kidney pain very severe that seems to be getting worse. States his fever is much more intense and he is now getting body cramps. Denies any dyspnea, CP, or abdominal pain. Patient reports that he was hospitalized 1 wk ago for a kidney infection and that he was told he was septic. Date (Duration): 07/11/19 Time (Timing): 08:00 Timing: Reports: getting worse Quality/Severity: Reports: severe, sharpness, stabbing Location of pain: Reports: other - right flank into kidney Activities at Onset: Reports: none Recent Injury?: Reports: no Possible Precipitating Factor: Reports: none Modifying Factors - (Improves): Reports: nothing Modifying Factors - (Worsens): Reports: movement flexion Associated Symptoms: Reports: fever/chills, sweating, nausea/vomiting Prior Treament: Reports: recently hospitalized Review of Systems - Review of Systems Constitutional: Present: recent illness, fever, chills EYE: Present: no symptoms reported ENT: Present: no symptoms reported Respiratory: Present: no symptoms reported Cardiology: Present: no symptoms reported Gastrointestinal/Abdominal: Present: nausea, other - right flank pain up into the right kidney. Absent: vomiting, diarrhea, constipation, abdominal pain Genitourinary: Present: pain, dysuria Musculoskeletal: Present: no symptoms reported Skin: Present: no symptoms reported Neurological: Present: no symptoms reported Endocrine: Present: no symptoms reported Hematologic/Lymphatic: Present: no symptoms reported Medical History (Last Updated 07/11/19 @ 17:02 by Veronica Delarosa RN) Kidney stone Urinary tract infection Knee pain, right No pertinent past medical history Spider bite Surgical History: Surgical History (Last Reviewed 07/11/19 @ 17:01 by Veronica Delarosa RN) No pertinent past surgical history Family History: Family History (Last Reviewed 04/24/19 @ 14:57 by Ayana Cope RN) Mother Alive and well Father Alive and well Other No pertinent family history Social History: (Last Reviewed 07/11/19 @ 17:01 by Veronica Delarosa RN) Social History: lives independently: Yes household members: children, none number of children: 1 current occupational status: employed 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 Service: No Tobacco: Smoking Status: Current every day smoker tobacco type: cigarettes Smoking cigarettes per day: 20.0 Smoking packs per day: 1 Alcohol: alcohol intake: current alcohol intake frequency: holiday/special occasion Substance Use: substance use type: does not use Dietary Habits: caffeine: Yes Type: coffee Physical Exam - Physical Exam General Appearance: Present: wd/wn, alert, moderate distress, anxious Eye Exam: Normal inspection: bilateral, PERRL: bilateral, EOMI: bilateral Ears, Nose, Throat: Present: normal pharynx, dry mucous membranes Neck: Present: normal inspection, nontender, supple, full range of motion Respiratory: Present: no respiratory distress, normal breath sounds, no accessory muscle use, chest nontender, lungs clear Cardiovascular/Chest: Present: no murmur, normal peripheral pulses, tachycardia Peripheral Pulses: N=norm/S=strong/W=weak/B=bound/A=absent: Radial (R): Normal, Radial (L): Normal, Dorsalis-pedis (R): Normal, Dorsalis-pedis (L): Normal Gastrointestinal/Abdominal: Present: normal bowel sounds, nontender, nondistended, soft, other - right upper flank tenderness with palpation. Back Exam: Present: no vertebral tenderness, CVA tenderness (R) Extremity Exam: Present: normal inspection, non-tender, normal range of motion Neurological Exam: Present: alert, oriented, normal mood/affect, no motor/sensory deficits Skin Exam: Present: normal color, warm/dry Progress - Results and Orders Patient's Lab Results:: I have reviewed the patient's lab results. - Vital Signs Patient's Vital Signs:: I have reviewed the patient's vital signs. Vital Signs: Vital Signs 07/11/19 16:55 Temperature 40.1 C H Pulse Rate 150 H Respiratory Rate 20 Blood Pressure 117/68 O2 Sat by Pulse Oximetry 100 - CT/Ultrasound CT/Ultrasound Narrative: CT abdomen/pelvis - Likely pyelonephritis of the right kidney. Cystitis. - Progress/Reassessment Chief Complaint: Back Pain - Transfer of Care Additional Notes: Discussed patient with Dr. Raines who agrees patient meets inpatient criteria. Fever has improved. HR improved. Pain improved. Patient is stable for placement at this facility. Departure Clinical Impression: Pyelonephritis of right kidney, Neutrophilic leukocytosis, Fever and chills - Departure Disposition: Short Term Hospital Inpatient Condition: Stable Referrals: Erlin Oliver DO [Primary Care Provider] -
[2019-07-11 17:31] LABS: Hematocrit 42.9 % (42.0-52.0); Hemoglobin 14.4 gm/dL (13.5-18.0); Mean Cell Volume 91.1 fl (78-100); Mean Corpuscular Hemoglobin 30.6 pg (27-31); Mean Corpuscular Hgb Conc 33.6 g/dl (32-36); Mean Platelet Volume 7.9 fl (8-11.3); Platelet Count 316 K/mm3 (150-450); Red Blood Count 4.71 M/mm3 (4.7-6.0); Red Cell Distribution Width 12.4 % (11.5-14.0); White Blood Count 25.1 K/mm3 (4.0-10.5)
[2019-07-11 17:37] LABS: Total Cells Counted 100
[2019-07-11 17:42] LABS: Albumin * 3.4 gm/dl (3.4-5.0); Anion Gap 12.9 mmol/L (6.8-13.8); BUN/Creatinine Ratio 13.3 (9.0-21.6); Bilirubin, Total 1.4 mg/dL (0.0-1.1); Ca. Corrected For Albumin 9.1 mg/dL (8.4-10.2); Calcium * 8.9 mg/dL (7.9-10.9); Carbon Dioxide 26.8 mmol/L (24-32.6); Potassium 3.7 mmol/L (3.4-4.6); Total Protein 7.1 gm/dL (6.2-8.2)
[2019-07-11] MEDS ORDERED: KETOROLAC TROMETHAMINE 30 MG/ML VIAL IV ONE ×2 (17:47→23:27)
[2019-07-11] MEDS ORDERED: CEFEPIME HCL 1 GM/100 ML BAG IV ONE (17:53)
[2019-07-11] MEDS ORDERED: VANCOMYCIN HCL 1 GM in DEXTROSE 5 % IN WATER 250 ML IV ONE ×2 (17:55)
[2019-07-11 17:56] LABS: Atypical (Reactive) Lymph 2 % (0-2); Band 4 % (0-2.0); Eosinophil 1 % (0-3); Lymphocyte 3 % (20-51); Monocyte 9 % (0-9); Neutrophil 81 % (42-75); Neutrophil # 20.3 K/mm3 (1.3-6.0)
[2019-07-11 17:57] LABS: Platelet Estimate Normal (NORMAL); RBC Morphology Normal (NORMAL)
[2019-07-11 18:00] LABS: CRP 23.8 mg/dL (0.0-0.9)
[2019-07-11 18:13] LABS: Urine Bilirubin Negative (NEGATIVE); Urine Blood 25 /ul (NEGATIVE); Urine Ketone 15 mg/dL (NEGATIVE); Urine Protein 30 mg/dL (NEGATIVE); Urine Specific Gravity 1.015 SP.GR. (1.005-1.030); Urine Urobilinogen Normal (NORMAL); Urine pH 7.5 pH (5.0-7.0)
[2019-07-11 18:31] LABS: Urine Appearance Cloudy (CLEAR); Urine Color Yellow; Urine Nitrite Positive (NEGATIVE)
[2019-07-11 18:32] LABS: Urine Bacteria 2+; Urine RBC 0-5 /hpf (0-5); Urine WBC 25-50 /hpf (0-5)
[2019-07-11] MEDS ORDERED: ONDANSETRON HCL/PF 2 MG/ML VIAL IV PRN (21:07)
[2019-07-12] MEDS: ACETAMINOPHEN 1,000 MG/100 ML BTL IV PRN ×2 (00:01→11:45)
[2019-07-12] MEDS ORDERED: NORMAL SALINE 1,000 ML IV PRN (02:56)
[2019-07-12] MEDS: IBUPROFEN 400 MG TABLET PO PRN ×3 (04:58→22:25)
[2019-07-12 06:48] LABS: Hemoglobin 13.8 gm/dL (13.5-18.0); Mean Cell Volume 92.3 fl (78-100); Mean Corpuscular Hemoglobin 30.3 pg (27-31); Mean Corpuscular Hgb Conc 32.9 g/dl (32-36); Mean Platelet Volume 8.1 fl (8-11.3); Platelet Count 318 K/mm3 (150-450); Red Blood Count 4.55 M/mm3 (4.7-6.0); Red Cell Distribution Width 12.4 % (11.5-14.0); White Blood Count 24.7 K/mm3 (4.0-10.5)
[2019-07-12 06:52] LABS: Total Cells Counted 100
[2019-07-12 06:55] LABS: Albumin * 2.8 gm/dl (3.4-5.0); Anion Gap 16.1 mmol/L (6.8-13.8); BUN/Creatinine Ratio 13.5 (9.0-21.6); Ca. Corrected For Albumin 8.8 mg/dL (8.4-10.2); Calcium * 8.2 mg/dL (7.9-10.9); Carbon Dioxide 22.9 mmol/L (24-32.6); Total Protein 6.2 gm/dL (6.2-8.2)
[2019-07-12 06:58] LABS: Band 1 % (0-2.0); Lymphocyte 6 % (20-51); Monocyte 5 % (0-9); Neutrophil 88 % (42-75); Neutrophil # 21.7 K/mm3 (1.3-6.0); Platelet Estimate Normal (NORMAL)
[2019-07-12 07:02] LABS: RBC Morphology Normal (NORMAL)
--- NOTE | 2019-07-12 09:10 | HP ---
Chief Complaint - Chief Complaint Date of Service: 07/12/19 Time of Service: 08:07 Chief Complaint: Pain with urination and low back pain for 2 days History of Present Illness: 34-year-old male with a past medical history UTI, and knee pain presents with complaints of back pain, pain with urination. Symptoms were associated with nausea and white penile discharge. He had been admitted in March 2019 with sepsis secondary to UTI. At that time urine was growing E. coli that was sensitive to cephalosporins. In the emergency department he had a fever of 40.1 C, tachycardia up to 150 bpm, leukocytosis,. He had a CT abdomen pelvis of 25,000 that showed multiple wedge-shaped hypoenhancing regions within the right kidney that were new from the prior exam. Differential includes pyelonephritis versus multiple renal infarcts. Less likely etiology would be neoplasm such as lymphoma. He was also found to have a partially distended urinary bladder with questionable bladder wall thickening. In the emergency department he received a dose of vancomycin and cefepime. He was admitted for acute pyelonephritis. Medical History (Last Reviewed 07/12/19 @ 01:10 by Cindy Mccoy RN) Kidney stone Urinary tract infection Knee pain, right No pertinent past medical history Spider bite Surgical History: Surgical History (Last Reviewed 07/12/19 @ 01:10 by Cindy Mccoy RN) No pertinent past surgical history Family History: Family History (Last Reviewed 07/12/19 @ 01:10 by Cindy Mccoy RN) Mother Alive and well Father Alive and well Other No pertinent family history Social History: (Last Reviewed 07/12/19 @ 01:10 by Cindy Mccoy RN) Social History: lives independently: Yes household members: children, none number of children: 1 current occupational status: employed 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 Service: No Tobacco: Smoking Status: Current every day smoker tobacco type: cigarettes Smoking cigarettes per day: 20.0 Smoking packs per day: 1 Alcohol: alcohol intake: current alcohol intake frequency: holiday/special occasion Substance Use: substance use type: does not use Dietary Habits: caffeine: Yes Type: coffee Review Of Systems (GEN) - Review of Systems Generalized/Overall Review: Present: Fever Respiratory: Absent: Shortness of Breath Cardiac: Absent: Chest Pain Genitourinary: Present: Dysuria, Other - White penile discharge Musculoskeletal: Present: Back Pain - Right worse than left Misc: All systems neg except as marked Immunizations: IMMUNIZATION HX Immunizations Up to Date Yes History of Influenza Vaccine No Hx Pneumococcal Vaccination No Allergies/Adverse Reactions: Allergies Allergy/AdvReac Type Severity Reaction Status Date / Time codeine AdvReac Intermediate Other Verified 07/11/19 17:02 Home Medications: HOME MEDICATIONS ibuprofen 400 mg tablet 400 mg PO BID PRN tab 02/16/18 [Last Taken 07/11/19 11:00] Acetaminophen [Tylenol] 1,000 mg PO Q4H 07/11/19 [Last Taken Unknown] Exam - Exam Vital Signs: Vital Signs - Last Taken Temp 37.2 C 07/12/19 06:49 Pulse 97 07/12/19 06:49 Resp 24 H 07/12/19 06:49 BP 127/70 07/12/19 06:49 Pulse Ox 97 07/12/19 06:49 Constitutional: Present: Alert, Cooperative, Well developed, Well nourished, No distress ENT Exam: Present: hearing grossly normal Eye Exam: bilateral eye: normal inspection, PERRL, EOMI Neck: Present: non-tender, supple, trachea midline. Absent: lymphadenopathy (R), lymphadenopathy (L) Back Exam: Present: no vertebral tenderness, CVA tenderness (R) - Right worse than left, CVA tenderness (L) Respiratory: Present: lungs clear, no respiratory distress, no accessory muscle use, No wheezing. Absent: crackles, rhonchi Cardiovascular/Chest: Present: regular rate, rhythm, no edema, no murmur Peripheral Pulses: dorsalis-pedis (R): 1+, dorsalis-pedis (L): 1+ Abdomen: Present: Normal bowel sounds, soft, nontender Extremity: Present: no pedal edema Skin Exam: Present: normal color, warm/dry Neurologic: Present: alert, normal mood/affect Appearance: Present: appropriate appearance Eye contact: Present: cooperative Thoughts: Present: normal thought pattern, normal mood /affect Diagnostic Studies: Abnormal Lab Results 07/11/19 07/11/19 07/11/19 Range/Units 17:15 17:15 18:05 WBC 25.1 H (4.0-10.5) K/mm3 RBC (4.7-6.0) M/mm3 MPV 7.9 L (8-11.3) fl Neutrophils % (Manual) 81 H (42-75) % Band Neuts % (Manual) 4 H (0-2.0) % Lymphocytes % (Manual) 3 L (20-51) % Neutrophils # (Manual) 20.3 H (1.3-6.0) K/mm3 Lymphocytes # (Manual) 0.8 L (1.5-3.5) k/mm3 Monocytes # (Manual) 2.3 H (0.0-1.0) k/mm3 Chloride 96 L (97-106) mmol/L Carbon Dioxide (24-32.6) mmol/L Anion Gap (6.8-13.8) mmol/L Random Glucose 121 H (70-110) mg/dL Total Bilirubin 1.4 H (0.0-1.1) mg/dL ALT 15 L (19-67) U/L C-Reactive Prot, Quant 23.8 H (0.0-0.9) mg/dL Albumin (3.4-5.0) gm/dl Urine Protein 30 H (NEGATIVE) mg/dL Urine Blood 25 H (NEGATIVE) /ul Urine Nitrate Positive H (NEGATIVE) Ur Leukocyte Esterase 75 H (NEGATIVE) /ul Urine WBC 25-50 H (0-5) /hpf Urine Bacteria 2+ H (NONE) 07/12/19 07/12/19 Range/Units 06:35 06:35 WBC 24.7 H (4.0-10.5) K/mm3 RBC 4.55 L (4.7-6.0) M/mm3 MPV (8-11.3) fl Neutrophils % (Manual) 88 H (42-75) % Band Neuts % (Manual) (0-2.0) % Lymphocytes % (Manual) 6 L (20-51) % Neutrophils # (Manual) 21.7 H (1.3-6.0) K/mm3 Lymphocytes # (Manual) (1.5-3.5) k/mm3 Monocytes # (Manual) 1.2 H (0.0-1.0) k/mm3 Chloride (97-106) mmol/L Carbon Dioxide 22.9 L (24-32.6) mmol/L Anion Gap 16.1 H (6.8-13.8) mmol/L Random Glucose (70-110) mg/dL Total Bilirubin (0.0-1.1) mg/dL ALT 15 L (19-67) U/L C-Reactive Prot, Quant (0.0-0.9) mg/dL Albumin 2.8 L (3.4-5.0) gm/dl Urine Protein (NEGATIVE) mg/dL Urine Blood (NEGATIVE) /ul Urine Nitrate (NEGATIVE) Ur Leukocyte Esterase (NEGATIVE) /ul Urine WBC (0-5) /hpf Urine Bacteria (NONE) Microbiology 07/11/19 18:05 Urine Culture - Preliminary Urine,Clean Catch Ruling Out Pathogen Laboratory Results WBC 24.7 K/mm3 (4.0-10.5) H 07/12/19 06:35 RBC 4.55 M/mm3 (4.7-6.0) L 07/12/19 06:35 Hgb 13.8 gm/dL (13.5-18.0) 07/12/19 06:35 Hct 42.0 % (42.0-52.0) 07/12/19 06:35 MCV 92.3 fl (78-100) 07/12/19 06:35 MCH 30.3 pg (27-31) 07/12/19 06:35 MCHC 32.9 g/dl (32-36) 07/12/19 06:35 RDW 12.4 % (11.5-14.0) 07/12/19 06:35 Plt Count 318 K/mm3 (150-450) 07/12/19 06:35 MPV 8.1 fl (8-11.3) 07/12/19 06:35 Neutrophils % (Manual) 88 % (42-75) H 07/12/19 06:35 Band Neuts % (Manual) 1 % (0-2.0) 07/12/19 06:35 Lymphocytes % (Manual) 6 % (20-51) L 07/12/19 06:35 Monocytes % (Manual) 5 % (0-9) 07/12/19 06:35 Eosinophils % (Manual) 1 % (0-3) 07/11/19 17:15 Neutrophils # (Manual) 21.7 K/mm3 (1.3-6.0) H 07/12/19 06:35 Lymphocytes # (Manual) 1.5 k/mm3 (1.5-3.5) 07/12/19 06:35 Monocytes # (Manual) 1.2 k/mm3 (0.0-1.0) H 07/12/19 06:35 Eosinophils # (Manual) 0.3 k/mm3 (0.0-0.7) 07/11/19 17:15 Atypic/Reactive Lymphs 2 % (0-2) 07/11/19 17:15 Platelet Estimate Normal (NORMAL) 07/12/19 06:35 RBC Morphology Normal (NORMAL) 07/12/19 06:35 Sodium 136 mmol/L (132-142) 07/12/19 06:35 Plasma Sodium 136 mmol/L (130-142) 07/12/19 06:35 Potassium 4.0 mmol/L (3.4-4.6) 07/12/19 06:35 Chloride 101 mmol/L (97-106) 07/12/19 06:35 Carbon Dioxide 22.9 mmol/L (24-32.6) L 07/12/19 06:35 Anion Gap 16.1 mmol/L (6.8-13.8) H 07/12/19 06:35 BUN 14 mg/dL (6-23) 07/12/19 06:35 Creatinine 1.04 mg/dL (0.4-1.4) 07/12/19 06:35 Est GFR (Non-Af Amer) 88 mL/min (60-130) 07/12/19 06:35 BUN/Creatinine Ratio 13.5 (9.0-21.6) 07/12/19 06:35 Random Glucose 109 mg/dL (70-110) 07/12/19 06:35 Lactic Acid, Venous 2.0 mmol/L (0.4-2.0) 07/11/19 17:15 Calcium 8.2 mg/dL (7.9-10.9) 07/12/19 06:35 Calcium Adj for Albumin 8.8 mg/dL (8.4-10.2) 07/12/19 06:35 Total Bilirubin 1.0 mg/dL (0.0-1.1) 07/12/19 06:35 AST 13 U/L (0-48) 07/12/19 06:35 ALT 15 U/L (19-67) L 07/12/19 06:35 Alkaline Phosphatase 63 U/L (50-170) 07/12/19 06:35 C-Reactive Prot, Quant 23.8 mg/dL (0.0-0.9) H 07/11/19 17:15 Total Protein 6.2 gm/dL (6.2-8.2) 07/12/19 06:35 Albumin 2.8 gm/dl (3.4-5.0) L 07/12/19 06:35 Amylase 42 U/L (25-115) 07/11/19 17:15 Lipase 109 U/L (73-393) 07/11/19 17:15 Urine Color Yellow 07/11/19 18:05 Urine Appearance Cloudy (CLEAR) 07/11/19 18:05 Urine pH 7.5 pH (5.0-7.0) 07/11/19 18:05 Ur Specific [place] 1.015 SP.GR. (1.005-1.030) 07/11/19 18:05 Urine Protein 30 mg/dL (NEGATIVE) H 07/11/19 18:05 Urine Glucose (UA) Negative mg/dL (NEGATIVE) 07/11/19 18:05 Urine Ketones 15 mg/dL (NEGATIVE) 07/11/19 18:05 Urine Blood 25 /ul (NEGATIVE) H 07/11/19 18:05 Urine Nitrate Positive (NEGATIVE) H 07/11/19 18:05 Urine Bilirubin Negative mg/dl (NEGATIVE) 07/11/19 18:05 Prot Sulfosalicylic Acd 1+ mg/dL (0) 07/11/19 18:05 Urine Urobilinogen Normal EU/dl (NORMAL) 07/11/19 18:05 Ur Leukocyte Esterase 75 /ul (NEGATIVE) H 07/11/19 18:05 Urine RBC 0-5 /hpf (0-5) 07/11/19 18:05 Urine WBC 25-50 /hpf (0-5) H 07/11/19 18:05 Ur Epithelial Cells None seen /hpf (0-5) 07/11/19 18:05 Urine Bacteria 2+ (NONE) H 07/11/19 18:05 Urine Culture Comments Culture to follow 07/11/19 18:05 Assessment/Plan - Narrative Narrative: 34-year-old male with a past medical history UTI, and knee pain presents with complaints of back pain, pain with urination. Symptoms were associated with nausea. He had been admitted in March 2019 with sepsis secondary to UTI. At that time urine was growing E. coli that was sensitive to cephalosporins. In the emergency department he had a fever of 40.1 C, tachycardia up to 150 bpm, leukocytosis,. He had a CT abdomen pelvis of 25,000 that showed multiple wedge- shaped hypoenhancing regions within the right kidney that were new from the prior exam. Differential includes pyelonephritis versus multiple renal infarcts. Less likely etiology would be neoplasm such as lymphoma. He was also found to have a partially distended urinary bladder with questionable bladder wall thickening. In the emergency department he received a dose of vancomycin and cefepime. He was admitted for acute pyelonephritis. Preliminary blood cultures are positive for moderate gram negative bacilli. Plan #1 stop vancomycin and continue with cefepime, day 2. His urine cultures in March 2019 grew E. coli that was sensitive to cephalosporins. #2 continue with Tylenol as needed for fever and headache #3 repeat CBC and CMP in the morning #4 VTE prophylaxis with Lovenox - Assessment/Plan (1) Pyelonephritis of right kidney Problem: Acute (2) Leukocytosis Problem: Acute (3) Headache Problem: Acute (4) Fever and chills Problem: Acute (5) Gram-negative bacteremia Problem: Acute
[2019-07-12] MEDS: ENOXAPARIN SODIUM 40 MG/0.4 ML SYRG SC SCH (11:07)
[2019-07-12] MEDS: CEFEPIME HCL 1 GM in DEXTROSE 5 % IN WATER 100 ML IV SCH ×4 (11:08→21:00)
[2019-07-12] MEDS ORDERED: MORPHINE SULFATE 4 MG/ML SYRG IV ONE (12:57)
[2019-07-12] MEDS ORDERED: ACETAMINOPHEN 1,000 MG/100 ML BTL IV SCH (13:30)
[2019-07-12] MEDS: ONDANSETRON HCL/PF 2 MG/ML VIAL IV SCH ×2 (13:58→18:50)
[2019-07-12] MEDS: ACETAMINOPHEN 1,000 MG/100 ML BTL IV SCH ×2 (17:08→23:37)
[2019-07-12] MEDS: MORPHINE SULFATE 2 MG/ML DISP.SYRIN IV PRN ×3 (17:08→23:34)
[2019-07-13] MEDS: ONDANSETRON HCL/PF 2 MG/ML VIAL IV SCH ×2 (01:22→07:17)
[2019-07-13] MEDS: ACETAMINOPHEN 1,000 MG/100 ML BTL IV SCH ×2 (05:33→11:51)
[2019-07-13 06:16] LABS: Hematocrit 40.5 % (42.0-52.0); Hemoglobin 13.2 gm/dL (13.5-18.0); Mean Cell Volume 93.1 fl (78-100); Mean Corpuscular Hemoglobin 30.3 pg (27-31); Mean Corpuscular Hgb Conc 32.6 g/dl (32-36); Mean Platelet Volume 8.5 fl (8-11.3); Neutrophil # 11.3 K/mm3 (1.3-6.0); Neutrophil % 73.6 % (42-75.0); Platelet Count 281 K/mm3 (150-450); Red Blood Count 4.35 M/mm3 (4.7-6.0); Red Cell Distribution Width 12.4 % (11.5-14.0); White Blood Count 15.4 K/mm3 (4.0-10.5)
[2019-07-13 06:23] LABS: Albumin * 2.5 gm/dl (3.4-5.0); Anion Gap 10.3 mmol/L (6.8-13.8); BUN/Creatinine Ratio 11.3 (9.0-21.6); Bilirubin, Total 0.6 mg/dL (0.0-1.1); Ca. Corrected For Albumin 9.3 mg/dL (8.4-10.2); Calcium * 8.4 mg/dL (7.9-10.9); Potassium 4.3 mmol/L (3.4-4.6); Total Protein 6.1 gm/dL (6.2-8.2)
[2019-07-13] MEDS: CEFEPIME HCL 1 GM in DEXTROSE 5 % IN WATER 100 ML IV SCH ×4 (09:36→20:18)
[2019-07-13] MEDS: ENOXAPARIN SODIUM 40 MG/0.4 ML SYRG SC SCH (09:39)
[2019-07-13] MEDS ORDERED: ACETAMINOPHEN 500 MG TABLET PO PRN (13:20)
[2019-07-13] MEDS ORDERED: ONDANSETRON HCL/PF 2 MG/ML VIAL IV PRN (13:21)
[2019-07-13] MEDS: MORPHINE SULFATE 2 MG/ML DISP.SYRIN IV PRN ×3 (15:34→19:50)
[2019-07-13] MEDS: IBUPROFEN 400 MG TABLET PO PRN (16:06)
[2019-07-13] MEDS: PHENAZOPYRIDINE HCL 100 MG TABLET PO SCH (20:16)
--- NOTE | 2019-07-13 23:21 | PN ---
Subjective - Date and Time Seen Date: 07/13/19 Time: 09:30 Subjective Narrative: Jitendra is feeling much better today and requested to be discharged to home. He had a fever last night however. No fevers this morning. No abdominal pain, nausea, or vomiting. Urine and blood cultures are both growing gram negative josé luis today. Objective - Vitals Vitals: Last Vital Signs Temp 36.6 C 07/13/19 19:54 Pulse 87 07/13/19 18:17 Resp 20 07/13/19 18:17 BP 117/70 07/13/19 18:17 Pulse Ox 100 07/13/19 18:17 - Abnormal Lab Findings Abnormal Lab Findings: Abnormal Lab Results 07/13/19 07/13/19 Range/Units 05:35 05:35 WBC 15.4 H D (4.0-10.5) K/mm3 RBC 4.35 L (4.7-6.0) M/mm3 Hgb 13.2 L (13.5-18.0) gm/dL Hct 40.5 L (42.0-52.0) % Immature Gran % (Auto) 0.50 H (0.001-0.429) % Immature Gran # (Auto) 0.08 H (0.000-0.0310) K/mm3 Lymphocytes % 13.2 L (20-51) % Monocytes % 11.4 H (0.0-9) % Neutrophils # 11.3 H (1.3-6.0) K/mm3 Monocytes # 1.4 H (0.0-1.0) k/mm3 ALT 14 L (19-67) U/L Total Protein 6.1 L (6.2-8.2) gm/dL Albumin 2.5 L (3.4-5.0) gm/dl - Exam Constitutional: Present: Alert, Oriented x3, Cooperative ENT Exam: Present: hearing grossly normal Respiratory: Present: lungs clear, normal breath sounds Cardiovascular/Chest: Present: regular rate, rhythm, no murmur Abdomen: Present: Normal bowel sounds, soft, nontender, nondistended Skin Exam: Present: normal color, warm/dry, no cyanosis Assessment/Plan Plan Narrative: Urine and Blood cultures are both growing Gram Negative José Luis. Continue Cefepime for now, awaiting sensitivity before changing to PO. I would also like to see WBC normalize more and for him to go 24 hours without having a fever before being discharge. I believe he will be able to be discharged to home tomorrow once cultures indicate what oral medication would be adequate for outpatient treatment. He will need two weeks of antibiotics due to positive blood culture. - Problems/Diagnosis (1) Gram-negative bacteremia Problem: Acute (2) Pyelonephritis of right kidney Problem: Acute
[2019-07-14] MEDS: MORPHINE SULFATE 2 MG/ML DISP.SYRIN IV PRN ×2 (00:44→07:09)
[2019-07-14] MEDS: IBUPROFEN 400 MG TABLET PO PRN ×2 (00:49→07:09)
[2019-07-14] MEDS: ENOXAPARIN SODIUM 40 MG/0.4 ML SYRG SC SCH (08:55)
[2019-07-14] MEDS: CEFEPIME HCL 1 GM in DEXTROSE 5 % IN WATER 100 ML IV SCH ×2 (08:55)
[2019-07-14] MEDS: PHENAZOPYRIDINE HCL 100 MG TABLET PO SCH (08:55)
--- NOTE | 2019-07-14 10:11 | DS ---
(1) E. coli bacteremia Problem: Acute (2) Pyelonephritis of right kidney Problem: Acute Date of Discharge:: 07/14/19 Hospital Course: Erlin is a 34 yo male that was admitted with acute pyelonephritis. He had a recent history of E. Coli UTI that was sensitive to cephalosporins. He was given vancomycin and cefepime in the ER, but based on his history he was continued on just cefepime. WBC trended down and fevers ultimately stopped. Urine culture and Blood culture returned positive for E. Coli sensitive to Ciprofloxacin. He will be continued on Ciprofloxacin based on cultures for two weeks due to bacteremia. He is feeling well today and able to be discharged to home. He will follow up in 2 weeks. Procedures Performed: none Results and Findings: Pending Mircobiology Results 07/11/19 17:40 Blood Blood Culture - Preliminary NO GROWTH AFTER 48 HOURS Lab Pending Results 07/11/19 17:15: WBC 25.1 H, RBC 4.71, Hgb 14.4, Hct 42.9, MCV 91.1, MCH 30.6, MCHC 33.6, RDW 12.4, Plt Count 316, MPV 7.9 L, Neutrophils % (Manual) 81 H, Band Neuts % (Manual) 4 H, Lymphocytes % (Manual) 3 L, Monocytes % (Manual) 9, Eosinophils % (Manual) 1, Neutrophils # (Manual) 20.3 H, Lymphocytes # (Manual) 0.8 L, Monocytes # (Manual) 2.3 H, Eosinophils # (Manual) 0.3, Atypic/Reactive Lymphs 2, Platelet Estimate Normal, RBC Morphology Normal 07/11/19 17:15: Sodium 132, Plasma Sodium 132, Potassium 3.7, Chloride 96 L, Carbon Dioxide 26.8, Anion Gap 12.9, BUN 16, Creatinine 1.20, Est GFR (Non-Af Amer) 75, BUN/Creatinine Ratio 13.3, Random Glucose 121 H, Calcium 8.9, Calcium Adj for Albumin 9.1, Total Bilirubin 1.4 H, AST 15, ALT 15 L, Alkaline Phosphatase 61, C-Reactive Prot, Quant 23.8 H, Total Protein 7.1, Albumin 3.4, Amylase 42, Lipase 109 07/11/19 17:15: Lactic Acid, Venous 2.0 07/11/19 18:05: Urine Color Yellow, Urine Appearance Cloudy, Urine pH 7.5, Ur Specific [place] 1.015, Urine Protein 30 H, Urine Glucose (UA) Negative, Urine Ketones 15, Urine Blood 25 H, Urine Nitrate Positive H, Urine Bilirubin Negative, Prot Sulfosalicylic Acd 1+, Urine Urobilinogen Normal, Ur Leukocyte Esterase 75 H, Urine RBC 0-5, Urine WBC 25-50 H, Ur Epithelial Cells None seen, Urine Bacteria 2+ H, Urine Culture Comments Culture to follow 07/12/19 06:35: WBC 24.7 H, RBC 4.55 L, Hgb 13.8, Hct 42.0, MCV 92.3, MCH 30.3, MCHC 32.9, RDW 12.4, Plt Count 318, MPV 8.1, Neutrophils % (Manual) 88 H, Band Neuts % (Manual) 1, Lymphocytes % (Manual) 6 L, Monocytes % (Manual) 5, Neutrophils # (Manual) 21.7 H, Lymphocytes # (Manual) 1.5, Monocytes # (Manual) 1.2 H, Platelet Estimate Normal, RBC Morphology Normal 07/12/19 06:35: Sodium 136, Plasma Sodium 136, Potassium 4.0, Chloride 101, Carbon Dioxide 22.9 L, Anion Gap 16.1 H, BUN 14, Creatinine 1.04, Est GFR (Non- Af Amer) 88, BUN/Creatinine Ratio 13.5, Random Glucose 109, Calcium 8.2, Calcium Adj for Albumin 8.8, Total Bilirubin 1.0, AST 13, ALT 15 L, Alkaline Phosphatase 63, Total Protein 6.2, Albumin 2.8 L 07/13/19 05:35: WBC 15.4 H D, RBC 4.35 L, Hgb 13.2 L, Hct 40.5 L, MCV 93.1, MCH 30.3, MCHC 32.6, RDW 12.4, Plt Count 281, MPV 8.5, Immature Gran % (Auto) 0.50 H, Immature Gran # (Auto) 0.08 H, Neutrophils % 73.6, Lymphocytes % 13.2 L, Monocytes % 11.4 H, Eosinophils % 1.1, Basophils % 0.2, Nucleated RBC % 0.0, Neutrophils # 11.3 H, Lymphocytes # 2.03, Monocytes # 1.4 H, Eosinophils # 0.2, Absolute Basophils 0.0 07/13/19 05:35: Sodium 139, Plasma Sodium 139, Potassium 4.3, Chloride 105, Carbon Dioxide 28.0, Anion Gap 10.3, BUN 11, Creatinine 0.97, Est GFR (Non-Af Amer) 95, BUN/Creatinine Ratio 11.3, Random Glucose 100, Calcium 8.4, Calcium Adj for Albumin 9.3, Total Bilirubin 0.6, AST 13, ALT 14 L, Alkaline Phosphatase 56, Total Protein 6.1 L, Albumin 2.5 L Discharge Location: Home Disposition: Home self-care Condition: Good Discharge Activity: Activity as tolerated Discharge Diet: General/regular food Referrals: Erlin Oliver DO [Primary Care Provider] - Two Weeks Problem Oriented Discharge Instructions to Patient/Family: Bacteremia, Pyelonephritis, Adult Print Language (Malay or Divehi Available): Malay Prescriptions (Any new or edited meds): Ciprofloxacin HCl [Cipro] 500 mg PO BID #28 tab Transmission Status: Pending to [facility] - [place], [place] Complete Home Medications List: Complete Home Medication List: ibuprofen 400 mg tablet 400 mg PO BID PRN tab 02/16/18 Acetaminophen [Tylenol] 1,000 mg PO Q4H 07/11/19 Ciprofloxacin HCl [Cipro] 500 mg PO BID #28 tab 07/14/19
[2019-07-14 10:30] VITALS: BP 114/74
== END 2019-07-14 10:55 | disposition home or self-care (01) | DRG 872 ==
LOC: ER 16:44 → MS 19:39
PROVIDERS: ADMIT Internal Medicine; ATTEND Family Medicine
CPT/HCPCS: 36415; 74177; 80053; 81001; 82150; 83605; 83690; 85007; 85025; 86140; 87040; 87077; 87086; 87186; 87491; 87591; 96361; 96365; 96375; 99285; J0131; J2405; Q9967